=== PATIENT | female | born 1995 | race Hispanic/Latino ===

== ENCOUNTER 2018-10-08 04:42 | Inpatient (IN) | payer BC, OTHER ==
[2018-10-08] MEDS ORDERED: PROMETHAZINE 25 MG/ML VIAL IM PRN (05:58)
[2018-10-08] MEDS ORDERED: METHYLERGONOVINE 0.2MG/ML AMP IM PRN (05:58)
[2018-10-08] MEDS ORDERED: Ringers Lactate 1,000 ML IV PRN (05:58)
[2018-10-08] MEDS ORDERED: CARBOPROST TROME 250 MCG/ML IM PRN (05:58)
[2018-10-08] MEDS ORDERED: BUTORPHANOL 1 MG/ML INJ IV PRN (05:58)
[2018-10-08] MEDS ORDERED: MEPERIDINE HCL 25 MG/0.5 ML IV PRN (05:58)
[2018-10-08] MEDS ORDERED: Ringers Lactate 1,000 ML IV SCH (06:00)
[2018-10-08] MEDS ORDERED: OXYTOCIN/LR 20 UNITS/1,000 ML BAG IV SCH (06:00)
[2018-10-08 06:28] VITALS: BMI 37.5
[2018-10-08 06:32] LABS: RPR Titer ND
[2018-10-08 06:35] LABS: Urine Appearance CLOUDY; Urine Bilirubin NEGATIVE (NEG); Urine Blood 2+ (NEG); Urine Color DK YELLOW; Urine Glucose NEGATIVE (NEG); Urine Microscopic Reflex ORDER UMIC; Urine Protein 1+ (NEG); Urine Specific Gravity 1.025 (1.005-1.030); Urine pH 5.5 (5.0-7.0)
[2018-10-08 06:36] LABS: Absolute Lymphocytes (CBC) 2.3 K/uL (0.7-4.9); Absolute Monocytes 0.6 K/uL (0.1-1.3); Absolute Neutrophil 8.6 K/uL (1.8-8.0); Basophils % 0.3 % (0-1.3); Eosinophils % 0.6 % (0-4.4); Hematocrit 37.3 % (36.0-45.0); Lymphocytes % 19.9 % (15.3-44.8); MPV 10.7 fL (7.6-11.3); Monocytes % 5.3 % (3.3-12.3); RBC Red Blood Cell Count 4.65 M/uL (3.86-4.86)
[2018-10-08 06:41] LABS: Urine Bacteria >50 /HPF (<20); Urine Culture Reflex Order NOT NEEDED; Urine Mucus LIGHT /HPF (NONE SEEN); Urine RBC <5 /HPF (NONE SEEN)
[2018-10-08] MEDS ORDERED: INFLUENZA VACCINE (for 3y+) 0.5 ML DOSE IMVAC ONE (07:00)
[2018-10-08] MEDS ORDERED: LIDOCAINE 2% INJ, 20 mL 20 ML ONE (07:44)
[2018-10-08] MEDS ORDERED: DIPHENHYDRAMINE 25 MG TAB/CAP PO PRN (08:42)
[2018-10-08] MEDS ORDERED: Oxycodone HCl/Acetaminophen 1 TAB TAB PO PRN ×2 (08:42)
[2018-10-08] MEDS ORDERED: BISACODYL 10 MG RECTAL SUPP RECT PRN (08:42)
[2018-10-08] MEDS ORDERED: DOCUSATE NA/SENNA CONC 1 TAB PO PRN (08:42)
[2018-10-08] MEDS ORDERED: ACETAMINOPHEN 500 MG TAB PO PRN (08:42)
[2018-10-08] MEDS ORDERED: OXYTOCIN/LR 20 UNIT/1,000 ML BAG IV SCH (09:00)
[2018-10-08] MEDS: IBUPROFEN 200 MG TAB PO PRN ×2 (10:05→20:37)
--- NOTE | 2018-10-08 11:20 | PREOPHP ---
Date of Admission: 10/08/2018 A 23-year-old 3, para 2, 39 weeks 2 days. Noted to be gestational diabetic during the pregna ncy. Otherwise normal . Rh positive. Immune to Rubella. Negative beta strep screen. Cam e in to Labor and Delivery with contractions, noted to be 3, then progressed to 3-1/2. Light Pitocin started. The patient is now 6 to 6-1/2, 100% effaced, 0 to -1 station. Rupture of membranes, light meconium. Baby looks good on the monitor. Full discussion with patient and about meconium. We will have DeLee suction trap available at delivery, but baby looks very good. Full labor talk george trevino. The patient states that she will be going natural and it looks like she is well on her way to accomplishing that go. TE/RAFAEL Voice ID: [id number]
--- NOTE | 2018-10-08 11:26 | OP ---
Surgeon: Angel Ferrell MD Hospital Course: A 23-year-old 3, para 2, 39 weeks 4 days, admitted in early labor. Started on Pitocin augmentation. Rupture of membranes at approximately 6 cm. Light meconium noted. FHTs n ormal and reactive throughout the labor. Used Lamaze breathing techniques. No analgesics. Went rap idly to complete. Second stage of 5 minutes or less. Spontaneous vaginal delivery of a 7 pound and 1 ounce female, Apgars 9 and 9. No suspicion of meconium aspiration. Thorough suction of the nares and oropharynx. Small first degree laceration just below the clitoris, infiltrated with local anesth etic. Two uksksp-ue-oqmhu stitches, 2-0 chromic. Schultze delivery of the placenta, which was inspe cted and noted to be intact and normal. Less than 350 cc blood loss. Rh positive, immune to Rubella . Negative beta strep screen. Tolerated all procedures well. Final Diagnoses: Term intrauterine 39 weeks 4 days, labor, vaginal delivery. Meconium sta ining. No aspiration. NBC/MODL Voice ID: [id number] Report ID: [id number]
[2018-10-08 21:20] LABS: RPR (Rapid Plasma Reagin) NON-REACT (NON-REACT)
[2018-10-09 00:45] VITALS: TEMP 97.4
[2018-10-09] MEDS: IBUPROFEN 200 MG TAB PO PRN ×2 (04:40→10:14)
--- NOTE | 2018-10-09 08:13 | DS ---
Hospital Course: Fern Simon is a 23-year-old 3, para 2, 39 weeks 4 days, came in with a ctive labor. Subsequently delivered a 7 pound and 1 ounce female, Apgars 9 and 9, meconium staining, no suspicion of aspiration. One small sub-clitoral first-degree laceration sutured with 2 interrupt ed hlzikh-nc-nohge stitches, 2-0 chromic. Schultze delivery of the placenta, which was inspected and noted to be intact and normal. Less than 350 cc blood loss. Rh positive, immune to Rubella. Negat joyce beta strep screen. She has had her Tdap immunization. afebrile, ambulating and voidi ng. Lochia is normal. Will be dismissed to return to my office in 6 weeks for followup; to report a ny temperature elevation of 100 degrees or greater, severe pain, heavy bleeding, or any other type of abnormalities. Dismissed with tramadol for analgesia, although she may elect to take Motrin instead . Final Diagnosis: Term intrauterine 39 weeks 4 days, vaginal delivery, meconium staining, n o aspiration. TE/EDITHL Voice ID: [id number] Report ID: [id number]
[2018-10-09 08:24] VITALS: BP 137/83
[2018-10-11 03:22] LABS: HBsAG Nonreactive (Nonreactive)
== END 2018-10-09 10:30 | disposition home or self-care (01) | DRG 807 ==
LOC: L&D 04:42 → 2ND-WC 05:54
PROVIDERS: ADMIT Specialist; ATTEND Specialist
PROC: 10E0XZZ Delivery of Products of Conception, External Approach (ICD-10-PCS; principal; 2018-10-08)
PROC: 10907ZC Drainage of Amniotic Fluid, Therapeutic from Products of Conception, Via Natural or Artificial Opening (ICD-10-PCS; 2018-10-08)
PROC: 0HQ9XZZ Repair Perineum Skin, External Approach (ICD-10-PCS; 2018-10-08)
DX: O70.0 First degree perineal laceration during delivery (principal); Z37.0 Single live birth; Z3A.39 39 weeks gestation of pregnancy
CPT/HCPCS: 36415; 81003; 81015; 85025; 86592; 86850; 86900; 86901; 87340; J2590

== ENCOUNTER 2021-03-08 23:13 | Inpatient (IN) | payer BC, OTHER ==
[2021-03-09] MEDS ORDERED: METHYLERGONOVINE 0.2MG/ML AMP IM PRN (00:18)
[2021-03-09] MEDS ORDERED: Ringers Lactate 1,000 ML IV PRN (00:18)
[2021-03-09] MEDS ORDERED: MEPERIDINE HCL 25 MG/ML SYR IV PRN (00:18)
[2021-03-09] MEDS ORDERED: BUTORPHANOL 1 MG/ML INJ IV PRN (00:18)
[2021-03-09] MEDS ORDERED: PENICILLIN 5 MU in NA CHLORIDE 0.9% 100 ML IV ONE (00:18)
[2021-03-09] MEDS ORDERED: MIDAZOLAM HCL 2 MG/2 ML INJ IV PRN (00:18)
[2021-03-09] MEDS ORDERED: PROMETHAZINE INJ 25 MG/ML AMP IM PRN (00:18)
[2021-03-09] MEDS ORDERED: CARBOPROST TROME 250 MCG/ML IM PRN (00:18)
[2021-03-09] MEDS ORDERED: MAGNESIUM SULF/STERILE WATER 1,000 ML IV ONE (00:39)
[2021-03-09 00:40] VITALS: O2SAT 99; BMI 42.0
[2021-03-09 00:59] LABS: Absolute Lymphocytes (CBC) 2.2 K/uL (0.7-4.9); Basophils % 0.4 % (0-1.3); Hematocrit 31.6 % (36.0-45.0); MPV 11.3 fL (7.6-11.3); RBC Red Blood Cell Count 4.18 M/uL (3.86-4.86)
[2021-03-09 01:00] LABS: Urine Appearance CLOUDY (Clear); Urine Bilirubin NEGATIVE (Negative); Urine Blood 3+ (Negative); Urine Color YELLOW (Yellow); Urine Glucose NEGATIVE (Negative); Urine Protein 3+ (Negative); Urine Specific Gravity >=1.030 (1.005-1.030)
[2021-03-09] MEDS ORDERED: OXYTOCIN/LR 20 UNIT/1,000 ML BAG IV SCH ×2 (01:00→11:00)
[2021-03-09] MEDS ORDERED: Ringers Lactate 1,000 ML IV SCH (01:00)
[2021-03-09 01:13] LABS: Urine Microscopic Reflex ORDER UMIC
[2021-03-09 01:28] LABS: Urine Bacteria >50 /HPF (<20); Urine Mucus 1+ /HPF (NONE SEEN)
[2021-03-09] MEDS ORDERED: LABETALOL 20 MG/4ML SYRINGE IV ONE (01:28)
[2021-03-09] MEDS ORDERED: LABETALOL 20 MG/4ML SYRINGE IV PRN (02:10)
[2021-03-09] MEDS ORDERED: MAGNESIUM SULF/STERILE WATER 1,000 ML IV SCH (03:00)
[2021-03-09] MEDS ORDERED: NA CHLORIDE 0.9% 100 ML ONE (03:34)
[2021-03-09] MEDS ORDERED: PENICILLIN G POT 5 MU/VIAL IV ONE (03:34)
[2021-03-09] MEDS ORDERED: BUTORPHANOL 1 MG/ML INJ ONE (07:03)
[2021-03-09] MEDS ORDERED: LIDOCAINE 1% MPF 30 ML VIAL ONE (08:01)
[2021-03-09] MEDS ORDERED: PENICILLIN 2.5 MU in NA CHLORIDE 0.9% 100 ML IV SCH (09:00)
[2021-03-09] MEDS ORDERED: BISACODYL 10 MG RECTAL SUPP PR PRN (10:28)
[2021-03-09] MEDS ORDERED: ACETAMINOPHEN 500 MG TAB PO PRN (10:28)
[2021-03-09] MEDS ORDERED: DOCUSATE NA/SENNA CONC 1 TAB PO PRN (10:28)
[2021-03-09] MEDS ORDERED: DIPHENHYDRAMINE 25 MG TAB/CAP PO PRN (10:28)
[2021-03-09] MEDS ORDERED: Oxycodone HCl/Acetaminophen 1 TAB TAB PO PRN ×2 (10:28)
[2021-03-09] MEDS: IBUPROFEN 200 MG TAB PO PRN ×2 (10:57→16:29)
--- NOTE | 2021-03-09 12:11 | PN ---
The patient is starting to feel her contractions little bit more now and they are getting slightly cl oser together. She is 8.5 cm. Baby has come down to about 0 station. There is still more cervix on the right than on the left, but this is starting to equalize. I think in the next 30 minutes or so, we should see much more significant and rapid progress. Baby looks good. TE/RAFAEL Voice ID: [id number] Report ID: [id number]
[2021-03-09] MEDS: PHENOBARBITAL 32.4 MG TABLET PO SCH (16:29)
[2021-03-10] MEDS: PHENOBARBITAL 32.4 MG TABLET PO SCH ×2 (00:40→08:17)
[2021-03-10] MEDS: IBUPROFEN 200 MG TAB PO PRN (05:20)
--- NOTE | 2021-03-10 10:27 | DS ---
Hospital Course: This is a 25-year-old, 4, para 3, came in labor at 39 weeks and 2 days, sub sequently delivered an 8 pounds 6 ounces male infant, Apgars 9 and 9, very light meconium. No suspic ion of aspiration. No episiotomy. No laceration. Schultze delivery of the placenta. Less than 200 cc blood loss. The patient was beta strep positive. Had 3 doses of penicillin during her labor. S he is also noted to have preeclampsia, was on magnesium sulfate during the labor that has been discon tinued and she has been placed on phenobarbital. Blood pressures have moderated, although they are s till in the 140 systolic range. She has no SOLUTIONS ARCHITECT symptoms. The patient will be dismissed to return to my office this week for blood pressure check, to report any temperature elevation of 100 degrees or greater, severe pain, heavy bleeding, or any other type of abnormalities. Dismissed with phenobarbit al to continue to take 3 times a day for 3 days. Final Diagnoses: Term intrauterine at 39 weeks 2 days, vaginal delivery, penicillin prophy laxis, preeclampsia now resolving. TE/EDITHL Voice ID: [id number] Report ID: [id number]
[2021-03-10 12:55] VITALS: BP 146/89; TEMP 97.7
--- NOTE | 2021-03-10 15:21 | PREOPHP ---
Date of Admission: 03/09/2021 History Of Present Illness: A 25-year-old 4, para 3, at 39 weeks and 2 days came in labor, a lso noted to have elevated blood pressure, +2 protein, pretibial edema. She said she has had no prob lems with blood pressure issues with her other pregnancies, but obviously now has preeclampsia. Admi tted, was also positive for Beta Strep. Started on magnesium sulfate 4 g loading dose, 2 g an hour m aintenance dose. Penicillin prophylaxis and labetalol ordered for her blood pressure. It is quite s table at this point and making good progress. Family History: Multiple people in the family with hypertension. Maternal grandfather with diabetes . Past Medical History: No previous surgeries. Allergies: NO ALLERGIES. Social History: No cigarette smoking. Medications: No medications prior to admission other than vitamins and iron. Physical Examination: HEENT: Clear. Pupils equal, round, reactive to light and accommodation. Conjunctivae well perfused . No oral, lingual, buccal lesions. Chest and Lung: Clear. Heart: Without murmurs, thrills, heaves, or rubs. Breasts: Without masses on previous visits. Abdomen: Term size. Extremities: Clear. She does have +1 to +2 pretibial edema. Diagnosis: At this point is term intrauterine , preeclampsia, positive strep status. Antic ipate delivery relatively soon as on the last exam she was 6 cm and 80%-90% effaced. TE/MODL Voice ID: [id number]
--- NOTE | 2021-03-10 15:24 | OP ---
Surgeon: Angel Ferrell MD A 25-year-old 4, para 3, 39 weeks 2 days came in labor, was subsequently delivery of an 8 myles nds 6-ounce male infant, Apgars 9 and 9. No episiotomy. No lacerations. Very slight meconium stain ing noted. No suspicion of aspiration. Schultze delivery of the placenta was inspected and noted to be intact. Less than 200 cc blood loss. The patient is Rh positive, rubella immune, strep positive , was given 3 doses of penicillin during her labor. On admission, she was noted to have elevated blo od pressures at one point requiring 10 mg of labetalol IV. Blood pressures as high as 160+ systolic and 100 or more diastolic. She was started on magnesium sulfate 4 g loading dose and 2 g an hour bar ntenance dose. Magnesium level was 4.6 last time tested well within therapeutic range. After the de livery, the blood pressures are still slightly elevated. Therefore, we have started the magnesium hampton lfate back again. We will keep it in and we will keep it going until she begins to diurese and then switch her over the phenobarbital. 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 This is her fourth with the same man, so unusual presentation, but she does have significant problems with blood pressure issues in. Final Diagnoses: 1.Term intrauterine . 2.Vaginal delivery. 3.Pre-eclampsia. 4.Beta-strep positive. TE/RAFAEL Voice ID: [id number] Report ID: [id number]
--- NOTE | 2021-03-10 15:24 | PN ---
The patient is now 7 cm. The baby I think is occiput posterior but the cervix is somewhat asymmetric with her being more cervix remaining on the patient's right side than on the left. She will do some pelvic rocks and see if we can get the baby to come to rotate and maybe become more toward the midlin e. Baby looks very good. Her vital signs are much improved. Last systolic was under 130. The patie nt is again very stoic and doing natural breathing techniques. I expect more rapid progress once the baby rotates into a more anterior position. NBC/MODL Voice ID: [id number] Report ID: [id number]
[2021-03-11 01:15] LABS: RPR (Rapid Plasma Reagin) NON-REACT (NON-REACT)
[2021-03-12 18:48] LABS: HBsAG Nonreactive (Nonreactive)
== END 2021-03-10 12:40 | disposition home or self-care (01) | DRG 807 ==
LOC: L&D 23:13 → 2ND-WC 03-09 00:12
PROVIDERS: ADMIT Specialist; ATTEND Specialist
PROC: 10E0XZZ Delivery of Products of Conception, External Approach (ICD-10-PCS; principal; 2021-03-09)
PROC: 10907ZC Drainage of Amniotic Fluid, Therapeutic from Products of Conception, Via Natural or Artificial Opening (ICD-10-PCS; 2021-03-09)
DX: O14.94 Unspecified pre-eclampsia, complicating childbirth (principal); Z37.0 Single live birth; O99.824 Streptococcus B carrier state complicating childbirth; Z3A.39 39 weeks gestation of pregnancy
CPT/HCPCS: 36415; 81003; 81015; 83735; 85025; 86592; 86901; 87086; 87088; 87340; J0595; J2210; J2540; J2590; J3475; J7120; U0003

== ENCOUNTER 2022-03-30 23:57 | Emergency (ER) | payer BC, OTHER ==
--- OUTSIDE RECORDS SUMMARY | 2022-03-31 00:01 | XMS REPORT | Continuity of Care Document ---
:1995 Author Organization [facility] t Address [address] [place] [address] Dr. [address] [place] [address] Care Team Providers Name Role Phone Vincent Torres Primary Care Physician FERNANDA HAMM Attending Clinician Unavailable Teodora GUZMAN, R Attending Clinician Unavailable Fernanda Hamm MD Attending Clinician Pob, Lab Main Attending Clinician Unavailable Only, Test Attending Clinician Unavailable Doctor Unassigned, Name Attending Clinician Unavailable FERNANDA HAMM Admitting Clinician Unavailable Fernanda Hamm MD Admitting Clinician Payers Payer Name Policy Type Policy Number Effective Date Expiration Date S olga [facility] [id number] 2020 00:00:00 [facility] [id number] 2021 CHOICE MEDICAID 00:00:00 Problems Condition Condition Condition Status Onset Resolution Last Treating Co mments Source Name Details Category Date Date Treatment Clinician Date Status Status Disease Active Univers post post 8-24 ity of bilateral bilateral 00:00: Petty borrero salpingect salpingect 00 Me dical [facility] Branch Obesity Obesity Disease Active Univers (BMI (BMI 7-22 ity of 30-39.9) 30-39.9) 00:00: [address] Admission Admission Disease Active Uni vers for tubal for tubal 7-22 ity of ligation ligation 00:00: [address] Allergies, Adverse Reactions, Alerts Allergy Allergy Status Severity Reaction(s) Onset Inactive Treating Comm ents Source Name Type Date Date Clinician NO KNOWN Drug Active Univers ALLERGIE Class ity of [facility] Social History Social Habit Start Date Stop Date Quantity Comments Source Exposure to Not sure [facility] SARS-CoV-2 [facility] (event) Branch Alcohol intake 2021-05-29 2021-05-29 Current drinker Unive rsity of 00:00:00 00:00:00 of alcohol [facility] (finding) Branch Tobacco use and 2021-04-25 2021-04-25 Never used Universit y of exposure 00:00:00 00:00:00 [facility] Sex Assigned At [birth year] Universit y of 00:00:00 00:00:00 [facility] Smoking Status Start Date Stop Date Source Unknown if ever smoked Universit y of [facility] Never smoker [facility] Medications Ordered Filled Start Stop Current Ordering Indication Dosage Frequency Signature Comments Components Source Medication Medication Date Date Medication? Clinician (SIG) Name Name sodium Yes PRN, Univers chloride 05-28 Starting ity of 0.9 % 16:46: Tue [place] irrigation 00 05/28/21 at [facility] ical solution 1146, [place] Until Discontinu ed, Intra-op sodium Yes PRN, Univers chloride 8 Starting ity of 0.9 % 16:46: Tue [place] irrigation 00 05/28/21 at [facility] ical solution 1146, [place] Until Discontinu ed, Intra-op sodium 2020- No PRN, Univers chloride 05-28 Starting ity of 0.9 % 16:46: 20:10 Tue [place] irrigation 00 :00 05/28/21 at Med ical solution 1146, Branch Until 05/28/21 at 1510, Intra-op sodium 2020- No PRN, Univers chloride 05-28 Starting ity of 0.9 % 16:46: 20:10 Tue [place] irrigation 00 :00 05/28/21 at Med ical solution 1146, Branch Until 05/28/21 at 1510, Intra-op bupivacaine Yes PRN, Univer s (preserv 05-28 Starting ity of free) 16:11: Tue [place] (SENSORCAIN 00 05/28/21 at Ar dicnd E [facility]) 0.25 1111, Branch % (2.5 Until mg/mL) Discontinu injection ed, Routine, Intra-op bupivacaine Yes PRN, Univer s (preserv 8-24 Starting ity of free) 16:11: [facility]CA[facility] 1111, Branch % (2.5 Until mg/mL) Discontinu injection ed, Routine, Intra-op bupivacaine 2020- No PRN, Unive rs (preserv 8-24 Starting ity of free) 16:11: 20:10 [facility] (SENSORCAIN 00 :00 05/28/21 at Ar dicnd E [facility]) 0.25 1111, Branch % (2.5 Until Tue mg/mL) 05/28/21 at injection 1510, Routine, Intra-op bupivacaine 2020- No PRN, Unive rs (preserv 8 08- Starting ity of free) 16:11: 20:10 [facility] (SENSORCAIN 00 :[facility] 0.25 1111, Branch % (2.5 Until Tue mg/mL) 05/28/21 at injection 1510, Routine, Intra-op lactated 2020- No 1000mL at 42 [facility] rs ringers IV 8- 08-24 mL/hr, ity of infusion 13:45: 14:08 1,000 mL, [place] 1,000 mL 00 :00 IV Medical Infusion, Branch ONCE, 1 dose, Thu05/28/21 at 0845, Routine, DSU Pre-op lactated 2020- No 1000mL at 42 [facility] rs ringers IV 8- 08-24 mL/hr, ity of infusion 13:45: 14:08 1,000 mL, [place] 1,000 mL 00 :00 IV Medical Infusion, Branch ONCE, 1 dose, Thu05/28/21 at 0845, Routine, DSU Pre-op lactated 2020- No 1000mL at 42 Unive rs ringers IV 8-24 08-24 mL/hr, ity of infusion 13:45: 14:08 1,000 mL, [place] 1,000 mL 00 :00 IV Medical Infusion, Branch ONCE, 1 dose, Thu05/28/21 at 0845, Routine, DSU Pre-op lactated 1-0 2021- No 1000mL at 42 Unive rs ringers IV 8-24 08-24 mL/hr, ity of infusion 13:45: 14:08 1,000 mL, [place] 1,000 mL 00 :00 IV Medical Infusion, Branch ONCE, 1 dose, 05/28/21 at 0845, Routine, DSU Pre-op acetaminoph 2020-0 Yes [id number] 650mg Take 2 Univers en 8-24 tablets by ity of (TYLENOL) 00:00: mouth [place] 325 mg 00 every 6 Medical tablet (six) Branch hours as needed for Pain (scale 1-3) or Pain (scale 4-6). ibuprofen 2020-0 Yes [id number] 600mg Take 1 Univers 600 mg 8-24 tablet by ity of tablet 00:00: mouth [place] 00 every 6 Medical (six) Branch hours as needed for Pain (scale 1-3) or Pain (scale 4-6). simethicone 2020-0 Yes [id number] 80mg Take 1 Univers 80 mg 8-24 tablet by ity of chewable 00:00: mouth [place] tablet 00 after Medical meals and Branch at bedtime. acetaminoph 2020-0 Yes [id number] 650mg Take 2 Univers en 8-24 tablets by ity of (TYLENOL) 00:00: mouth [place] 325 mg 00 every 6 Medical tablet (six) Branch hours as needed for Pain (scale 1-3) or Pain (scale 4-6). ibuprofen 2020-0 Yes [id number] 600mg Take 1 Univers 600 mg 8-24 tablet by ity of tablet 00:00: mouth [place] 00 every 6 Medical (six) Branch hours as needed for Pain (scale 1-3) or Pain (scale 4-6). simethicone 2020-0 Yes [id number] 80mg Take 1 Univers 80 mg 8-24 tablet by ity of chewable 00:00: mouth [place] tablet 00 after Medical meals and Branch at bedtime. acetaminoph 2020-0 Yes [id number] 650mg Take 2 Univers en 8-24 tablets by ity of (TYLENOL) 00:00: mouth [place] 325 mg 00 every 6 Medical tablet (six) Branch hours as needed for Pain (scale 1-3) or Pain (scale 4-6). ibuprofen 2020-0 Yes [id number] 600mg Take 1 Univers 600 mg 8-24 tablet by ity of tablet 00:00: mouth [place] 00 every 6 Medical (six) Branch hours as needed for Pain (scale 1-3) or Pain (scale 4-6). simethicone 2021-0 Yes [id number] 80mg Take 1 Univers 80 mg 8-24 tablet by ity of chewable 00:00: mouth [place] tablet 00 after Medical meals and Branch at bedtime. acetaminoph 202-0 Yes [id number] 650mg Take 2 Univers en 8-24 tablets by ity of (TYLENOL) 00:00: mouth [place] 325 mg 00 every 6 Medical tablet (six) Branch hours as needed for Pain (scale 1-3) or Pain (scale 4-6). ibuprofen 2020-0 Yes [id number] 600mg Take 1 Univers 600 mg 8-24 tablet by ity of tablet 00:00: mouth [place] 00 every 6 Medical (six) Branch hours as needed for Pain (scale 1-3) or Pain (scale 4-6). simethicone 2020-0 Yes [id number] 80mg Take 1 Univers 80 mg 8-24 tablet by ity of chewable 00:00: mouth [place] tablet 00 after Medical meals and Branch at bedtime. acetaminoph 202-0 Yes [id number] 650mg Take 2 Univers en 8-24 tablets by ity of (TYLENOL) 00:00: mouth [place] 325 mg 00 every 6 Medical tablet (six) Branch hours as needed for Pain (scale 1-3) or Pain (scale 4-6). ibuprofen 2020-0 Yes [id number] 600mg Take 1 Univers 600 mg 8-24 tablet by ity of tablet 00:00: mouth [place] 00 every 6 Medical (six) Branch hours as needed for Pain (scale 1-3) or Pain (scale 4-6). simethicone 2021-0 Yes [id number] 80mg Take 1 Univers 80 mg 8-24 tablet by ity of chewable 00:00: mouth [place] tablet 00 after Medical meals and Branch at bedtime. acetaminoph 202-0 Yes [id number] 650mg Take 2 Univers en 8-24 tablets by ity of (TYLENOL) 00:00: mouth [place] 325 mg 00 every 6 Medical tablet (six) Branch hours as needed for Pain (scale 1-3) or Pain (scale 4-6). ibuprofen 2020-0 Yes [id number] 600mg Take 1 Univers 600 mg 8-24 tablet by ity of tablet 00:00: mouth [place] 00 every 6 Medical (six) Branch hours as needed for Pain (scale 1-3) or Pain (scale 4-6). simethicone 2020-0 Yes [id number] 80mg Take 1 Univers 80 mg 8-24 tablet by ity of chewable 00:00: mouth [place] tablet 00 after Medical meals and Branch at bedtime. acetaminoph 2020-0 Yes [id number] 650mg Take 2 Univers en 8-24 tablets by ity of (TYLENOL) 00:00: mouth [place] 325 mg 00 every 6 Medical tablet (six) Branch hours as needed for Pain (scale 1-3) or Pain (scale 4-6). ibuprofen 2020-0 Yes [id number] 600mg Take 1 Univers 600 mg 8-24 tablet by ity of tablet 00:00: mouth [place] 00 every 6 Medical (six) Branch hours as needed for Pain (scale 1-3) or Pain (scale 4-6). simethicone 2020-0 Yes [id number] 80mg Take 1 Univers 80 mg 8-24 tablet by ity of chewable 00:00: mouth [place] tablet 00 after Medical meals and Branch at bedtime. HYDROcodone 2020- No 4647 1{tbl} Take 1 U nivers -acetaminop 8-24 09- tablet by it y of hen 5-325 00:00: 04:59 mouth [place] mg tablet 00 :00 every 6 Medical (six) Branch hours as needed for Pain (scale 7-10) for up to 7 days. Indication s: acute pain HYDROcodone 2020-2020- No 4647 1{tbl} Take 1 U nivers -acetaminop 8-24 09-01 tablet by it y of hen 5-325 00:00: 04:59 mouth [place] mg tablet 00 :00 every 6 Medical (six) Branch hours as needed for Pain (scale 7-10) for up to 7 days. Indication s: acute pain HYDROcodone 2020-2020- No 4647 1{tbl} Take 1 U nivers -acetaminop 05-28 tablet by it y of hen 5-325 00:00: 04:59 mouth [place] mg tablet 00 :00 every 6 Medical (six) Branch hours as needed for Pain (scale 7-10) for up to 7 days. Indication s: acute pain HYDROcodone 2020- No 4647 1{tbl} Take 1 U nivers -acetaminop 05-28 tablet by it y of hen 5-325 00:00: 04:59 mouth [place] mg tablet 00 :00 every 6 Medical (six) Branch hours as needed for Pain (scale 7-10) for up to 7 days. Indication s: acute pain No known No [facility] No [facility] medications [facility] No known No Univers medications [facility] No known No Univers medications [facility] No known No Univers medications [facility] No known No Univers medications [facility] Immunizations Ordered Filled Immunization Date Status Comments [facility] Immunization Name Name TDAP 2021-03-10 Completed [facility] 00:00:00 [facility] Vital Signs Vital Name Observation Time Observation Value Comments Source Systolic blood 2021-05-28 17:55:00 131 mm[Hg] [facility] blood 2021-05-28 17:55:00 80 mm[Hg] Unive [facility] Heart rate 2021-05-28 17:55:00 86 /min [facility] Respiratory rate 2021-05-28 17:55:00 14 /min [facility] Oxygen saturation in 2021-05-28 17:55:00 100 /min [facility] Arterial blood by [facility] Pulse oximetry Branch Body temperature 2021-05-28 17:10:00 36.11 [facility] Systolic blood 2021-05-28 17:55:00 131 mm[Hg] Univer sity [facility] Diastolic blood 2021-05-28 17:55:00 80 mm[Hg] Unive [facility] Heart rate 2021-05-28 17:55:00 86 /min [facility] Respiratory rate 2021-05-28 17:55:00 14 /min [facility] Oxygen saturation in 2021-05-28 17:55:00 100 /min [facility] Arterial blood by [facility] Pulse oximetry Branch Body temperature 2021-05-28 17:10:00 36.11 Laura Univ ersity of [facility] Systolic blood 2021-05-22 14:23:00 121 mm[Hg] Univer sity of pressure [facility] Diastolic blood 2021-05-22 14:23:00 82 mm[Hg] Unive rsity of pressure [facility] Heart rate 2021-05-22 14:23:00 84 /min Universi ty of [facility] Body temperature 2021-05-22 14:23:00 36.94 [facility] ersity of [facility] Respiratory rate 2021-05-22 14:23:00 18 /min Univ ersity of [facility] Body height 2021-05-22 14:23:00 157.5 cm [facility] [place] [facility] [place] Body weight 2021-05-22 14:23:00 90.81 kg Universi ty of [facility] BMI 2021-05-22 14:23:00 36.62 kg/m2 [facility] [place] [facility] Systolic blood 2021-04-25 15:54:00 131 mm[Hg] Univer sity of pressure [facility] Branch Diastolic blood 2021-04-25 15:54:00 85 mm[Hg] Unive rsity of pressure [facility] Heart rate 2021-04-25 15:54:00 76 /min [facility] [place] [facility] [place] Respiratory rate 2021-04-25 15:54:00 18 /min Univ ersity of [facility] Body height 2021-04-25 15:54:00 157.5 cm [facility] [place] [facility] [place] Body weight 2021-04-25 15:54:00 92.534 kg [facility] [place] [facility] BMI 2021-04-25 15:54:00 37.31 kg/m2 [facility] [place] [facility] Procedures Procedure Date / Time Performing Clinician Source Performed LAPAROSCOPIC 2021-05-28 15:19:00 Reilly Hamm [place] [facility] SALPINGECTOMY [facility] HB ABO GROUPING 2021-05-28 14:02:00 Reilly Hamm [facility] HB ABO GROUPING 2021-05-28 14:02:00 Reilly Hamm [place] f [facility] POCT TEST 2021-05-28 13:37:00 Albin Horta [facility] POCT TEST 2021-05-28 13:37:00 Albin Horta [facility] DAY SURGERY - ADC 2021-05-28 05:01:00 Doctor Unassigned, No Univ [facility] POCT TEST 2021-05-22 14:32:00 Reilly Hamm [facility] DSU PRE-OP 2021-05-22 05:01:00 Doctor Unassigned, No [facility] DSU PRE-OP 2021-05-22 05:01:00 Doctor Unassigned, No [facility] ASSIGNMENT OF BENEFITS 2021-04-25 15:46:56 Doctor Unassigned, No [facility] Encounters Start End Encounter Admission Attending Care Care Encounter Source Date/Time Date/Time Type Type Clinicians Facility Department ID 2021-08-05 Outpatient Sanjana HAMM REILLY [facility] TUBE [employer]ER[place] [id number] Univers 16:31[facility]08 [facility] 2021-10-28 2021-10-28 YARELIS Scott [id number] Univers 00:00:00 00:00:00 Management Bianca ALBERT [id number] [id number] [id number] [address] 2021-08-01 2021-08-01 Outpatient REILLY REES [facility] [id number] Univers 13:30:00 13:30:00 [id number] ity [facility] 2021-08-01 2021-08-01 Outpatient REILLY REES [facility] [id number] Univers 13:30:00 13:30:00 [facility] 2021-06-27 2021-06-27 Outpatient REILLY REES [facility] [id number] Univers 10:30:00 10:30:00 [id number] [facility] 2021-06-272021-06-27 Outpatient R REILLY HAMM [facility] [id number] Univers 10:30:00 10:30:00 ity of [facility] 2021-06-14 2021-06-14 Telephone Reilly Hamm [facility] [id number] Univers 00:00:00 00:00:00 [place] [id number] i [id number] Profess[place] [id number] Ar dical nal 134 [facility] 2021-06-12 2021-06-12 Outpatient R REILLY HAMM [facility] [id number] Univers 09:00:00 09:00:00 [id number] ity of [facility] 2021-06-12 2021-06-12 Outpatient R REILLY HAMM [facility] [id number] Univers 09:00:00 09:00:00 ity of [facility] 2021-05-28 2021-05-28 [facility] Reilly Hamm [facility] [id number] Univers 08:32:00 13:08:00 Encounter Cam [place] [id number] [place]y [id number] [id number] [facility] 071 [place] 2021-05-28 2021-05-28 Surgery Reilly Hamm [facility] [id number] Univers 11:31:00 12:59:00 Cam [place] [id number] i ty [id number] [id number] [facility] 020 [place] 2021-05-27 2021-05-27 Aoc Director Intelligence Officer Gerardo, Adc Lab Main [facility] [id number] Univers 14:42:51 14:57:51 Visit Reilly Hamm [place] [id number] ity [id number] [id number] Ar dical nal 353 [facility] 2021-05-27 2021-05-27 Laboratory Only, Adc Test [facility] [id number]. [id number] Univers 14:39:20 14:54:20 Only Reilly [place] [id number] ity [id number] [place] [id number] [address] 2021-05-27 2021-05-27 Outpatient R [facility] [id number] Univers 14:15:00 14:15:00 [id number] ity of [facility] 2021-05-27 2021-05-27 Outpatient R [facility] [id number] Univers 14:15:00 14:15:00 ity of [facility] 2021-05-22 2021-05-22 Office Reilly Hamm [facility] [id number] Univers 08:53:06 09:54:11 Visit Fernanda [place] [id number] i ty [id number] [id number] Ar dical nal [address] [place] [address] 2021-05-22 2021-05-22 Outpatient REILLY HAMM [facility] [id number] Univers 09:00:00 09:00:00 [id number] ity of [facility] 2021-05-22 2021-05-22 Outpatient R NORIS REILLY [facility] [id number] Univers 09:00:00 09:00:00 ity of [facility] 2021-04-25 2021-04-25 Office Reilly Hamm [facility] [id number] Univers 10:47:14 11:56:37 Visit Fernanda [place] [id number] i ty [place] [id number] [id number] Ar dical nal [address] [place] [address] 2021-04-25 2021-04-25 Outpatient R REILLY HAMM [facility] [id number] Univers 10:30:00 10:30:00 ity of [facility] 2021-04-25 2021-04-25 Orders Doctor ESCALANTE [id number] Univers 00:00:00 00:00:00 Only Unassigned, JOSE [id number] ity of [place] [facility] [id number] [place] [id number] [place] [address] Branch Results Test Description Test Time Test Comments Results Result Comments Source Type and Screen - ONCE [facility] 2021-05-28 15:05:57 Test Item Value Reference Range Interpretation Comme nts ABO & RH (test code = 20) B Positive Pe rformed at [facility] Laboratory [facility] Blood [address] [place], [place] [address]Toll Free: [phone] A No. [id number] IAT (test code = 1185) Negative Perfo rmed at [facility] Blood [address] [place], [place] [address]Toll Free: [phone] A No. [id number] [facility] and Screen - ONCE [id number] 15:05:57 Test Item Value Reference Range Interpretation Comments ABO & RH (test code B Positive Performe d at [facility] = 20) Laboratory Serv [facility] Blood Bank[address] [place], [place] [address]Toll Free: [phone] A No. [id number] IAT (test code = Negative Performed a t [facility] 1185) Laboratory [facility] Blood Bank[address] [place], [place] [address]Toll Free: [phone] A No. [id number] [facility] and Screen - ONCE [id number] 15:05:57 Test Item Value Reference Range Interpretation Comments ABO & RH (test code = 20) B Positive IAT (test code = 1185) Negative [facility] and Screen - ONCE [id number] 15:05:57 Test Item Value Reference Range Interpretation Comments ABO & RH (test code = 20) B Positive IAT (test code = 1185) [id number] 13:37:00 Test Item Value Reference Range Interpretation Comments POCT PREG (test code = 1605) Negative On board controls acceptable with Yes C Line (test code = 3574) POCT PREG LOT # (test code = 3575) [id number] POCT PREG TEST DATE (test 2022-10-04 code = 3576) [facility] [id number] 13:37:00 Test Item Value Reference Range Interpretation Comments POCT PREG (test code = 1605) Negative On board controls acceptable with Yes C Line (test code = 3574) POCT PREG LOT # (test code = 3575) [id number] POCT PREG TEST DATE (test 2022-10-04 code = 3576) [facility] [id number] 13:37:00 Test Item Value Reference Range Interpretation Comments POCT PREG (test code = 1605) Negative On board controls acceptable with Yes C Line (test code = 3574) POCT PREG LOT # (test code = 3575) [id number] POCT PREG TEST DATE (test 2022-10-04 code = 3576) [facility] [id number] 13:37:00 Test Item Value Reference Range Interpretation Comments POCT PREG (test code = 1605) Negative On board controls acceptable with Yes C Line (test code = 3574) POCT PREG LOT # (test code = 3575) [id number] POCT PREG TEST DATE (test 2022-10-04 code = 3576) [facility] [id number] 14:33:00 Test Item Value Reference Range Interpretation Comments POCT PREG (test code = 1605) Negative On board controls acceptable with C Yes Line (test code = 3574) POCT PREG LOT # (test code = 3575) POCT PREG TEST DATE (test code = 3576) Lab Interpretation (test code = Normal 63255-8) [facility] [id number] 14:33:00 Test Item Value Reference Range Interpretation Comments POCT PREG (test code = 1605) Negative On board controls acceptable with C Yes Line (test code = 3574) POCT PREG LOT # (test code = 3575) POCT PREG TEST DATE (test code = 3576) Lab Interpretation (test code = Normal 69619-6) [facility]
[2022-03-31] MEDS ORDERED: IBUPROFEN 400 MG TAB ONE (01:09)
--- NOTE | 2022-03-31 04:12 | ER ---
Nurse's Notes [facility] Name: Fern Simon Age: 26 yrs Sex: Female : 1995 Arrival Date: 03/31/2022 Time: 00:00 Bed 13 Private MD: Diagnosis: Presentation: 03/31 00:57 Chief complaint: Patient states: "A microwave fell on my right pinky and it is hurting vc1 pretty bad.". Coronavirus screen: Vaccine status: Patient reports being unvaccinated. Ebola Screen: No symptoms or risks identified at this time. 00:57 Method Of Arrival: Ambulatory vc1 01:06 Initial Sepsis Screen: Does the patient meet any 2 criteria? No. Patient's initial vc1 sepsis screen is negative. Does the patient have a suspected source of infection? No. Patient's initial sepsis screen is negative. Risk Assessment: Do you want to hurt yourself or someone else? Patient reports no desire to harm self or others. Onset of symptoms is unknown. 01:06 Acuity: ALMA 4 vc1 Triage Assessment: 01:06 General: Appears in no apparent distress. Behavior is calm, cooperative, appropriate vc1 for age. Pain: Complains of pain in right little finger Pain does not radiate. Pain currently is 5 out of 10 on a pain scale. Neuro: Level of Consciousness is awake, alert, obeys commands, Oriented to person, place, time, situation, Appropriate for age. Cardiovascular: Capillary refill < 3 seconds Patient's skin is warm and dry. Respiratory: Airway is patent Respiratory effort is even, unlabored, Respiratory pattern is regular, symmetrical. GI: No deficits noted. : No signs and/or symptoms were reported regarding the genitourinary system. Derm: No deficits noted. Musculoskeletal: Circulation, motion, and sensation intact. Range of motion: limited in PIP of right little finger. Injury Description: Crush injury. Historical: - Home Meds: 01:06 None [Active]; vc1 - PSHx: 01:06 None; vc1 - Immunization history:: Adult Immunizations up to date. - Social history:: Smoking status: Patient denies any tobacco usage or history of. Vital Signs: 01:06 BP 115 / 80; Pulse 75; Resp 16; Temp 98.0; Pulse Ox 100% ; Weight 90.72 kg; Height 5 vc1 ft. 2 in. (157.48 cm); Pain 5/; 01:06 Body Mass Index 36.58 (90.72 kg, 157.48 cm) vc1 ED Course: 00:00 Patient arrived in ED. bp1 01:06 Triage completed. vc1 01:06 Arm band placed on right wrist. vc1 01:27 XRAY Hand RIGHT 2 View In Process Unspecified. EDMS 04:10 Patient's name was called from ER lobby. No response. Unable to locate patient. Will bb disposition as left without being seen by a provider. Administered Medications: No medications were administered Outcome: 04:11 Patient left the ED. bb Signatures: Dispatcher [employer] EDMS Yumiko Perez, RN RN bb Mallory Pacheco bp1 Elise Dillard, NATHANIEL RN vc1
[2022-03-31 04:20] VITALS: BP 115/80; TEMP 98; O2SAT 100
--- NOTE | 2022-03-31 20:40 | RAD REPORT ---
EXAM DESCRIPTION: RAD - Hand Right 2 View - 03/31/2022 1:25 am CLINICAL HISTORY: 26 years Female PAIN TECHNIQUE: 2 x-ray views of the right hand were performed on 03/31/2022 at 1:19 AM. COMPARISON: None FINDINGS: There is no evidence of fracture or dislocation. There is no significant arthritis or dege nerative change. No focal lytic or sclerotic bone lesions are seen. Bone mineralization is normal. No acute soft tissue abnormalities are identified. IMPRESSION: No evidence of acute osseous injury involving the right hand. Electronically signed by: Judi Moya DO 03/31/2022 3:11 AM CDT Due to temporary technical issues with the PACS/Fluency reporting system, reports are being signed by the in house radiologists without. review as a courtesy to insure prompt reporting. The interpreting radiologist is fully responsible for the content of the report
== END 2022-03-31 04:11 | disposition left against medical advice (07) ==
LOC: ER 23:57
DX: Z53.21 Procedure and treatment not carried out due to patient leaving prior to being seen by health care provider (principal)
CPT/HCPCS: 99282